=== PATIENT | female | born 1990 | race Caucasian/White ===

== ENCOUNTER 2018-12-15 00:45 | Inpatient (IN) | payer OTHER ==
[2018-12-15] MEDS ORDERED: DEXTROSE 5%-LACTATED RINGERS 1,000 ML IV SCH (01:10)
[2018-12-15 01:57] LABS: BASO % 0.6 % (0-2.0); EOS % 0.9 % (0-4.5); HEMOGLOBIN 12.7 GM/dL (10.7-15.3); LYMPH % 14.9 % (8-40); MCH 30.7 pg (25.7-33.7); MCHC 33.4 g/dl (32.0-36.0); MEAN PLT VOLUME 8.7 fl (7.5-11.1); MONO % 8.3 % (3.8-10.2); NEUT % 75.3 % (42.8-82.8); PLATELET COUNT 216 K/MM3 (134-434); RBC 4.13 M/mm3 (3.60-5.2); RDW 14.5 % (11.6-15.6); WHITE BLOOD COUNT 9.3 K/mm3 (4.0-10.0)
[2018-12-15 02:12] LABS: INR 0.92 (0.83-1.09); PROTHROMBIN TIME (PATIENT) 10.8 SEC (9.7-13.0)
[2018-12-15 02:14] LABS: ACTIVATED PTT 29.2 SECONDS (25.2-36.5)
[2018-12-15 02:18] LABS: BLOOD UREA NITROGEN 7.5 mg/dL (7-18); CREATININE 0.7 mg/dL (0.55-1.3)
[2018-12-15] MEDS ORDERED: PROMETHAZINE HCL 25 MG/1 ML VIAL ONE (02:35)
[2018-12-15] MEDS ORDERED: BUTORPHANOL TARTRATE 1 MG/ML VIAL ONE ×2 (02:42)
[2018-12-15] MEDS ORDERED: BUTORPHANOL TARTRATE 1 MG/ML VIAL IVPB ONE (02:55)
--- NOTE | 2018-12-15 03:01 | HP ---
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 No: Ascites, Cancer, Constipation, Crohn's Disease, Diverticulitis, Diverticulosis, Esophageal Varices, GERD, GI Bleed, Hemorrhoids, Hiatal Hernia, Inflamatory Bowel Disease, Irritable Bowel Disease, Pancreatitis, Peptic Ulcer Disease, Ulcerative Colitis , Other Hepatobiliary: No: Cirrhosis, Cholelithiasis, Cholecystitis, Choledocholithiasis , Hepatitis A, Hepatitis B, Hepatitis C, Other Renal/: No: Renal Failure, Renal Inusuff, BPH, Cancer, Hematuria, Hemodialysis , Neurogenic Bladder, Renal Calculi, UTI, Other ...: 2 ...Para: 1 ...Term: 1 ...LMP: 02/22/18 ... Weeks Gestation by Dates: 41.0 ...EDC by Dates: 12/09/18 ...EDC by Sono: 12/09/18 Heme/Onc: Yes: Sickle Cell Trait (patient reports FOB) Infectious Disease: Yes: Other (rubella non-immune) Psych: No: Addictions, Anxiety, Bipolar, Depression, Panic, Psychosis, Schizophrenia, Other Musculoskeletal: No: Bursitis, Chronic low back pain, Hemiparesis, Hemiplegia, Osteoarthritis, Paraplegia, Other Rheumatology: No: Fibromyalgia, Gout, Lupus, Rheumatoid Arthritis, Sarcoidosis, Vasculitis, Other ENT: No: Allergic Rhinitis, Sinusitis, Other Endocrine: No: Leonard's Disease, Jacques's Disease, Diabetes Insipidus, Diabetes Mellitus, Hyperparathyroidism, Hyperthyroidism, Hypothyroidism, Osteopenia, SIADH, Other Dermatology: No: Basal Cell, Cellulitis, Eczema, Melanoma, Psoriasis, Squamous Cell, Other - Past Surgical History Past Surgical History: Yes: None Hx Myomectomy: No Hx Transabdominal Cerclage: No - Smoking History Smoking history: Never smoked Have you smoked in the past 12 months: No - Alcohol/Substance Use Hx Alcohol Use: No History of Substance Use: reports: None - Social History History of Recent Travel: Yes (zika test performed) Home Medications - Allergies Allergies/Adverse Reactions: Allergies Allergy/AdvReac Type Severity Reaction Status Date / Time No Known Allergies Allergy Verified 12/15/18 01:40 - Home Medications Home Medications: Ambulatory Orders Vitamins (Sjr) - 1 tab PO DAILY 12/15/18 Family Disease History - Family Disease History Family History: Unable to Obtain Review of Systems - Review of Systems Constitutional: reports: No Symptoms Eyes: reports: No Symptoms HENT: reports: No Symptoms Neck: reports: No Symptoms Cardiovascular: reports: No Symptoms Respiratory: reports: No Symptoms Gastrointestinal: reports: No Symptoms Genitourinary: reports: No Symptoms Breasts: reports: No Symptoms Reported Musculoskeletal: reports: No Symptoms Integumentary: reports: No Symptoms Neurological: reports: No Symptoms Hematology/Lymphatic: reports: No Symptoms Psychiatric: reports: No Symptoms Physical Exam - Maternity Vital Signs: Vital Signs Temperature 98.6 F 12/15/18 01:25 Pulse Rate 87 12/15/18 01:25 Respiratory Rate 20 12/15/18 01:25 Blood Pressure 137/89 12/15/18 01:25 O2 Sat by Pulse Oximetry (%) Constitutional: Yes: Well Nourished, No Distress Eyes: Yes: WNL HENT: Yes: Atraumatic, Normocephalic Neck: Yes: Supple Cardiovascular: Yes: Regular Rate and Rhythm Breast(s): Yes: Other (deferred) - Abdominal Exam/OB Number of Fetuses: Single Presentation: Vertex Contractions: Yes Regularity: Regular Intensity: Mod/Strong Monitor Mode: External Category: I Accelerations: Uniform Decelerations: None - Vaginal Exam/OB Vaginal Bleediing: No Speculum Exam: No Dilatation (cm): 6 Effacement (%): 90 Amniotic Membrane Status: Intact Station: -2 - Physical Exam Musculoskeletal: Yes: WNL Extremities: Yes: WNL Edema: Yes Edema: LLE: Trace, RLE: Trace Integumentary: Yes: WNL Deep Tendon Reflex Grade: Normal +2 ...Motor Strength: WNL Psychiatric: Yes: Alert, Oriented - Labs Lab Results: CBC, BMP 12/15/18 01:40 12/15/18 01:40 Imaging - Results Ultrasound: Report Reviewed (11/09/18), Other (patient reports sono performed yesterday and EFW of 8lbs as per her. Official sono is not available) Assessment/Plan 28 y/o @ 40.6 wks by LMP confirmed by 1st and 2nd trimester sonos, [place], GBS negative, SC trait and declined genetic consult, rubella non-immune. Patient presents in active labor, requesting IV pain control. FHT is reassuring and latest sono showed AC >95%, GDS is negative. Possible significance of large AC, including SC discussed with patient and all questions answered. Patient desires BTL and consent previously obtained. -Admission and informed consent obtained -Expectant management -IV pain control -Continuous monitoring -Re-evaluate accordingly
[2018-12-15 03:19] VITALS: BMI 38.6
[2018-12-15] MEDS ORDERED: PROMETHAZINE HCL 25 MG/1 ML VIAL IVPB ONE (03:30)
[2018-12-15 03:36] LABS: COCAINE, UR NEGATIVE ng/ml (CUTOFF=300); METHADONE, UR NEGATIVE ng/ml (CUTOFF=300); OPIATES, URI NEGATIVE ng/ml (CUTOFF=300); PHENCYCLIDINE,URINE NEGATIVE ng/ml (CUTOFF=25); URINE AMPHETAMINES NEGATIVE ng/ml (CUTOFF=500); URINE BARBITURATES NEGATIVE ng/ml (CUTOFF=200); URINE BENZODIAZEPINES NEGATIVE ng/ml (CUTOFF=200)
[2018-12-15] MEDS ORDERED: OXYTOCIN 20 UNITS in 0.9% NS 20 UNIT/1,000 ML INFUS.BAG IV ONE (05:10)
[2018-12-15] MEDS ORDERED: LIDOCAINE HCL 1% PRESERVATIVE FREE - 30ML VIAL ONE (05:10)
[2018-12-15] MEDS: OXYTOCIN 20 UNITS in 0.9% NS 20 UNIT/1,000 ML INFUS.BAG IV SCH (05:40)
--- NOTE | 2018-12-15 06:05 | PN ---
Ante-Partal Exam - Subjective Subjective: Patient evaluated for progression of labor Vital Signs: Vital Signs Temperature 98.1 F 12/15/18 03:00 Pulse Rate 89 12/15/18 04:00 Respiratory Rate 20 12/15/18 04:00 Blood Pressure 132/65 12/15/18 04:00 O2 Sat by Pulse Oximetry (%) Bleeding: Yes (bloody show) Bleeding Description: Mild Headache: No Visual changes: No Right upper quadrant pain: No - Contractions Contractions: Yes Regularity: Regular Intensity: Strong Monitor Mode: External - Exam during Labor Heart Rate: 155 (cat I) Variability: Moderate Category: I Monitor Accelerations: Present Monitor Decelerations: None Exam: Vaginal Dilatation (cm): 9.5 Effacement (%): 199 Amniotic Membrane Status: Ruptured (scant clear) Presentation: Vertex (asynclitic) Station: -1 - Assessment/Plan Assessment/Plan: @ 40.6wks, active labor, FHT is reassuring, S/P IV pain control and AROM. -Initiate maternal expulsive efforts -Anticipate
[2018-12-15] MEDS ORDERED: WITCH HAZEL 50% (TUCKS) 40 PAD/JAR PAD TP PRN (06:19)
[2018-12-15] MEDS ORDERED: BISACODYL 10 MG SUPP.RECT RC PRN (06:19)
[2018-12-15] MEDS ORDERED: BENZOCAINE 28 GM HEMORRHOIDAL OINTMENT TP PRN (06:19)
[2018-12-15] MEDS ORDERED: BENZOCAINE 20% 57 GM BOTTLE TP PRN (06:19)
[2018-12-15] MEDS ORDERED: MISOPROSTOL 100 MCG TABLET PV ONE (06:38)
--- NOTE | 2018-12-15 06:38 | PN ---
Delivery - Delivery Vaginal Delivery: No Problems Type of Anesthesia: Local Episiotomy/Laceration: Vaginal Extension/lac (small right sulcus laceration), 2nd degree EBL (cc): 400 Delivery, Single - Stages of Labor Date 1st Stage Initiatied: 12/14/18 Time 1st Stage Initiated: 23:00 Date 2nd Stage Initiated: 12/15/18 Placenta: Yes: Spontaneous - Condition of Gender: Female Position: OA (rstituted to KELLEY) - Feeding Plan Initial Plan: Exclusive throughout hospitalization Remarks - Remarks Remarks: 's head delivered with maternal expulsive efforts. No nuchal cord was present and shoulders followed without difficulty. Umbilical cord clamped and cut after delay. Samples for gases and blood obtained. Placenta delivered spontaneously and intact. Exam revealed mild atony and 2 degree perineal laceration with a small right vaginal sulcus tear. Rectal examination revealed intact mucosa. The laceration was correctly reapproximated anatomically with 2.0 and 3.0 polysorb sutures in standard fashion. Excellent reapproximation and hemostasis noted. No tissue tension noted at the conclusion of the repaired. 1000mcg misoprostol was administered prophylactically NV and exam revealed intact rectal mucosa. Fundus is firm and no active bleeding noted. Instrument/ sponge count is correct x 2 and confirmed by the nurse.
[2018-12-15] MEDS ORDERED: oxyCODONE HCL 5 MG TABLET PO PRN (06:39)
[2018-12-15] MEDS ORDERED: oxyCODONE HCL 5 MG TABLET ONE (07:05)
[2018-12-15] MEDS: IBUPROFEN 600 MG TABLET (FP) PO PRN ×3 (08:43→23:40)
[2018-12-15] MEDS: ACETAMINOPHEN 325 MG TABLET (FP) PO PRN ×2 (13:43→23:40)
[2018-12-16 07:04] LABS: BASO % 0.5 % (0-2.0); EOS % 2.3 % (0-4.5); HEMATOCRIT 34.3 % (32.4-45.2); HEMOGLOBIN 11.7 GM/dL (10.7-15.3); LYMPH % 23.5 % (8-40); MCH 31.3 pg (25.7-33.7); MEAN PLT VOLUME 8.7 fl (7.5-11.1); NEUT % 66.7 % (42.8-82.8); PLATELET COUNT 219 K/MM3 (134-434); RBC 3.73 M/mm3 (3.60-5.2); RDW 14.5 % (11.6-15.6); WHITE BLOOD COUNT 7.6 K/mm3 (4.0-10.0)
--- NOTE | 2018-12-16 08:07 | PN ---
Progress Note (short form) - Note Progress Note: ppd 1 ,doing well, ambylating, voids ok no excess vaginal bleeding CBC, BMP 12/16/18 06:30 12/15/18 01:40 Last Vital Signs Temp Pulse Resp BP Pulse Ox 98.1 F 85 20 124/76 99 12/16/18 06:00 12/16/18 06:00 12/16/18 06:00 12/16/18 06:00 12/15/18 07:40 uterus firm, non tender lochia mild no calf tenderness plan ambulate, for D/C home in am
[2018-12-16] MEDS: IBUPROFEN 600 MG TABLET (FP) PO PRN ×2 (12:20→20:47)
[2018-12-16] MEDS: ACETAMINOPHEN 325 MG TABLET (FP) PO PRN ×2 (12:21→20:48)
[2018-12-16] MEDS: OXYTOCIN 20 UNITS in 0.9% NS 20 UNIT/1,000 ML INFUS.BAG IV SCH (15:30)
[2018-12-16] MEDS ORDERED: SENNOSIDES/DOCUSATE COMBO (SENNA PLUS) TABLET (UD) PO PRN (22:00)
[2018-12-17 09:40] VITALS: BP 132/77; PULSE 92; TEMP 98.2
--- NOTE | 2018-12-17 12:12 | DS ---
Physical Examination Vital Signs: Vital Signs Temperature 98.2 F 12/17/18 09:39 Pulse Rate 92 H 12/17/18 09:39 Respiratory Rate 20 12/17/18 09:39 Blood Pressure 132/77 12/17/18 09:39 O2 Sat by Pulse Oximetry (%) 99 12/15/18 07:40 Constitutional: Yes: Well Nourished, No Distress, Calm Eyes: Yes: WNL, Conjunctiva Clear, EOM Intact HENT: Yes: WNL, Atraumatic, Normocephalic Neck: Yes: WNL, Supple, Trachea Midline Cardiovascular: Yes: WNL, Regular Rate and Rhythm Respiratory: Yes: WNL, Regular, CTA Bilaterally Gastrointestinal: Yes: WNL, Normal Bowel Sounds Musculoskeletal: Yes: WNL Extremities: Yes: WNL Edema: No Integumentary: Yes: WNL Neurological: Yes: WNL, Alert, Oriented ...Motor Strength: WNL Psychiatric: Yes: WNL Labs: CBC, BMP 12/16/18 06:30 12/15/18 01:40 Discharge Summary Reason For Visit: LABOR ADMIT Procedures: Principal: Hospital Course: Patent presented in labor She had an uncomplicated She met all milestones She was discharged home PPD#2 Condition: Stable - Instructions Diet, Activity, Other Instructions: Regular DIet Follow up in 4-6 weeks for your visit Referrals: Neftaly Garay MD [Family Provider] - Disposition: HOME - Home Medications Comprehensive Discharge Medication List: Ambulatory Orders Vitamins (Sjr) - 1 tab PO DAILY 12/15/18 Ibuprofen [Motrin -] 600 mg PO QID PRN #28 tablet 12/16/18
== END 2018-12-17 12:40 | disposition home or self-care (01) | DRG 560 ==
LOC: JDEL 00:45 → JLDR 01:10 → J3W 08:00
PROVIDERS: ADMIT Student in an Organized Health Care Education/Training Program; ATTEND Student in an Organized Health Care Education/Training Program
PROC: 10E0XZZ Delivery of Products of Conception, External Approach (ICD-10-PCS; principal; 2018-12-15)
PROC: 0W8NXZZ Division of Female Perineum, External Approach (ICD-10-PCS; 2018-12-15)
PROC: 0KQM0ZZ Repair Perineum Muscle, Open Approach (ICD-10-PCS; 2018-12-15)
DX: O70.1 Second degree perineal laceration during delivery (principal); Z3A.40 40 weeks gestation of pregnancy; Z37.0 Single live birth
CPT/HCPCS: 36415; 36600; 59025; 59409; 80048; 80307; 82803; 85025; 85610; 85730; 86593; 86850; 86900; 86901

== ENCOUNTER 2019-02-03 05:07 | Day surgery (SDC) | payer OTHER ==
[2019-02-01 10:45] VITALS: BMI 33.4
[2019-02-03] MEDS ORDERED: BUPIVACAINE HCL/PF 0.5% (5 MG/ML) 30 ML VIAL IJ ONE ×3 (11:53→13:25)
--- NOTE | 2019-02-03 12:32 | HP ---
History & Physical Update - Physical Physical: No Change - Assessment Assessment: No Change - Plan Plan: No Change
[2019-02-03] MEDS ORDERED: MIDAZOLAM HCL 2 MG/2 ML SINGLE DOSE VIAL ONE (12:38)
[2019-02-03] MEDS ORDERED: PROPOFOL 20 ML ONE (12:38)
[2019-02-03] MEDS ORDERED: ROCURONIUM BROMIDE 50 MG/5 ML SYRINGE ONE (12:39)
[2019-02-03] MEDS ORDERED: SUCCINYLCHOLINE CHLORIDE 200 MG/10 ML SYRINGE ONE (12:39)
--- NOTE | 2019-02-03 12:52 | HP ---
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: Alzheimer's, CVA, Dementia, Migraine, Multiple Sclerosis, Peripheral Neuropathy, Parkinson's, Seizure, Syncope, TIA, Vertigo, Other Cardiovascular: No: AFIB, Aneurysm, Aortic Insufficiency, Aortic Stenosis, CAD, CHF, Deep Vein Thrombosis, HTN, Hyperlipdemia, [place], Mitral Insufficiency, Mitral Stenosis, Murmur, Pulmonary Hypertension, Other Pulmonary: No: Asthma, Bronchitis, Cancer, COPD, O2 Dependent, Pneumonia, Previously Intubated, Pulmonary Embolus, Pulmonary Fibrosis, Sleep Apnea, Other Gastrointestinal: Yes: Gastritis (h/o po prlosec prn) Hepatobiliary: No: Cirrhosis, Cholelithiasis, Cholecystitis, Choledocholithiasis , Hepatitis A, Hepatitis B, Hepatitis C, Other Renal/: No: Renal Failure, Renal Inusuff, BPH, Cancer, Hematuria, Hemodialysis , Neurogenic Bladder, Renal Calculi, UTI, Other Reproductive: No: Ectopic , Endometriosis, Fibroids, PID, Polycystic Ovary Syndrome, Postmenopausal, Other ...LMP Comment: 2018 ...: No Heme/Onc: Yes: Sickle Cell Trait (patient reports FOB). No: Anemia, B12 Deficiency, Bleeding Disorder, Cancer, Current Chemotherapy, Current Radiation Therapy, Hemochromatosis, Hypercoaguable State, Myeloproliferative Synd, Sickle Cell Disease, Thrombocytopenia, Other Infectious Disease: Yes: Other (rubella non-immune). No: AIDS, C-Diff, Herpes Zoster, HIV, MRSA, STD's, Tuberculosis, VREF Psych: No: Addictions, Anxiety, Bipolar, Depression, Panic, Psychosis, Schizophrenia, Other Musculoskeletal: No: Bursitis, Chronic low back pain, Hemiparesis, Hemiplegia, Osteoarthritis, Paraplegia, Other Rheumatology: No: Fibromyalgia, Gout, Lupus, Rheumatoid Arthritis, Sarcoidosis, Vasculitis, Other ENT: No: Allergic Rhinitis, Sinusitis, Other Endocrine: No: Leonard's Disease, [place]'s Disease, Diabetes Insipidus, Diabetes Mellitus, Hyperparathyroidism, Hyperthyroidism, Hypothyroidism, Osteopenia, SIADH, Other Dermatology: No: Basal Cell, Cellulitis, Eczema, Melanoma, Psoriasis, Squamous Cell, Other - Past Surgical History Past Surgical History: Yes: None. No: AAA Repair, AICD, Amputation, Appendectomy, Arthrosocopy, AV Fistula/Graft, Bariatric Surgery, Breast Biopsy, Bypass, CABG, Carotid Endarterectomy, Cataract Removal, Cholecystectomy, Colectomy, Colonoscopy, Colostomy, Craniotomy, , Cystectomy, Hernia Repair, Hysterectomy, Ileal Conduit, Ileosotomy, Joint Replacement, Kidney Transplant, Laminectomy, Liver Transplant, Mastectomy, Nephrectomy, Oopherectomy , Orchiectomy, Permanent Pacemaker, Prostatectomy, Splenectomy, Stent, Thoracotomy, TURP, Tonsillectomy, Tubal Ligation, Upper Endoscopy, Valve Replacement, Vasectomy, Vein Stripping/Ligation - Smoking History Smoking history: Never smoked Have you smoked in the past 12 months: No - Alcohol/Substance Use Hx Alcohol Use: No History of Substance Use: reports: None - Social History History of Recent Travel: Yes (zika test performed) Home Medications - Allergies Allergies/Adverse Reactions: Allergies Allergy/AdvReac Type Severity Reaction Status Date / Time No Known Allergies Allergy Verified 02/03/19 12:05 - Home Medications Home Medications: Ambulatory Orders Vitamins (Sjr) - 1 tab PO HS 12/15/18 Ibuprofen [Motrin -] 600 mg PO PRN PRN 02/01/19 Review of Systems Unable to obtain ROS, reason: unremarkable - Review of Systems Constitutional: reports: No Symptoms Eyes: reports: No Symptoms HENT: reports: No Symptoms Neck: reports: No Symptoms Cardiovascular: reports: No Symptoms Respiratory: reports: No Symptoms Gastrointestinal: reports: No Symptoms Genitourinary: reports: No Symptoms Breasts: reports: No Symptoms Reported Musculoskeletal: reports: No Symptoms Integumentary: reports: No Symptoms Neurological: reports: No Symptoms Endocrine: reports: No Symptoms Hematology/Lymphatic: reports: No Symptoms Psychiatric: reports: No Symptoms Physical Examination Vital Signs: Vital Signs Temperature 98.3 F 02/03/19 12:05 Pulse Rate 75 02/03/19 12:05 Respiratory Rate 20 02/03/19 12:05 Blood Pressure 122/75 02/03/19 12:05 O2 Sat by Pulse Oximetry (%) 100 02/03/19 11:58 Constitutional: Yes: Calm Eyes: Yes: WNL HENT: Yes: Atraumatic Neck: Yes: Supple Cardiovascular: Yes: Regular Rate and Rhythm Gastrointestinal: Yes: Soft ...Rectal Exam: Yes: Deferred Renal/: Yes: Other (deferred) Musculoskeletal: Yes: WNL Extremities: Yes: WNL Edema: No Integumentary: Yes: WNL Wound/Incision: Yes: Well Approximated Neurological: Yes: Alert, Oriented ...Motor Strength: WNL Psychiatric: Yes: Alert, Oriented Labs: reviewed Assessment/Plan 28 y/o multiparous female desiring sterilization. Risks and complications of laparoscopic bilateral salpingectomy discussed at length and all questions answered. Informed consnet obtained -Proceed with scheduled surgery
[2019-02-03] MEDS ORDERED: PROMETHAZINE HCL 25 MG/1 ML VIAL IVPUSH PRN (12:53)
[2019-02-03] MEDS ORDERED: oxyCODONE HCL 5 MG TABLET PO PRN (12:53)
[2019-02-03] MEDS ORDERED: ONDANSETRON 4 MG/2 ML VIAL IVPUSH PRN (12:53)
[2019-02-03] MEDS ORDERED: LACTATED RINGERS SOLUTION 1,000 ML IV SCH (13:00)
[2019-02-03] MEDS ORDERED: NEOSTIGMINE METHYLSULFATE 0.5 MG/ML - 10 ML MDV ONE (13:53)
--- NOTE | 2019-02-03 14:29 | SURG ---
Surgery Special Delivery Messenger Note Special Delivery Messenger: Steve Hanley PA-C Date of Service: 02/03/19 Diagnosis: Voluntary sterilization Procedure: Laproscopic bilateral salpingectomy I was present for the entirety of the operative procedure. For further detail, please refer to operative report. Visit type - Case Type Case Type: Scheduled - Emergency Emergency Visit: No - New patient This patient is new to me today: Yes Date on this admission: 02/03/19 - Critical Care Critical Care patient: No
--- NOTE | 2019-02-03 14:53 | OP ---
Operative Note - Note: Operative Date: 02/03/19 (dic# [id number]) Pre-Operative Diagnosis: multiparity Operation: Laparoscopic bilateral salpingectomy Findings: see dictation Implants: none Post-Operative Diagnosis: Same as Pre-op Surgeon: Neftaly Garay Ripsawyer: Steve Hanley Anesthesia: General Specimens Removed: bilateral fallopian tubes Estimated Blood Loss (mls): 5 Drains, Volume Out (mls): 350 Fluid Volume Replaced (mls): 900 Operative Report Dictated: Yes
[2019-02-03 18:43] VITALS: TEMP 98
[2019-02-03 19:14] VITALS: BP 126/80; PULSE 100
--- NOTE | 2019-02-04 07:57 | OP ---
DATE OF OPERATION: 02/03/2019 PREOPERATIVE DIAGNOSIS: A 28-year-old female, desiring sterilization, counseled and consented for bilateral salpingectomy laparoscopically. POSTOPERATIVE DIAGNOSIS: A 28-year-old female, desiring sterilization, counseled and consented for bilateral salpingectomy laparoscopically. PROCEDURE: Laparoscopic bilateral salpingectomy. SURGEON: Nikolay Su MD CORRECTION OFFICER HEAD: , SAEID ANESTHESIA: General. INTRAVENOUS FLUIDS: Crystalloid 1900 mL. ESTIMATED BLOOD LOSS: Minimal 5 mL. COMPLICATIONS: None. FINDINGS: Normal anterior abdominal wall anatomy. A moderate amount of subcutaneous adipose tissue. Uncomplicated normal bimanual examination. Cervix consistent with multiparity. Intraabdominal findings were consistent with normal anatomy. No evidence of active bleeding or trauma at the point of entry or with the intraabdominal viscera. Uterus normal in appearance with small 2-cm x 1 subserosal fibroid, bilateral tubes and ovaries consistent with normal anatomy. Surgical stump was dry. DESCRIPTION OF PROCEDURE: The patient was taken to operating room where anesthesia was found to be adequate. She was then prepped and draped in a normal sterile fashion. A urinary Pollard catheter was placed atraumatically. Appropriate timeout took place. Attention was redirected to the vaginal area where anterior cervix was grasped with a single-toothed tenaculum and the HUMI manipulator was introduced to a depth of 8 cm without difficulty. Balloon tip inflated. All instruments were retrieved from the vagina. The HUMI manipulator handle was properly covered with a sterile glove. Attention was redirected to the abdomen where an infraumbilical incision was made with the scalpel following local anesthetic injection. The subcutaneous tissues were dissected off bluntly. The fascia was grasped with Chandana clamps and elevated. It was transected with Padilla scissors. Incidental entry to the peritoneal cavity occurred and peritoneal incision was extended bluntly and the incision was elevated from any underlying viscera. The Evens trocar was placed, and insufflating medium was activated. Proper placement was confirmed by the laparoscope. No active bleeding or evidence of trauma at the point of entry or at the level of the underlying viscera. Inspection of the abdominal cavity and pelvic cavity revealed previously mentioned findings. Left lower quadrant trocar was placed under constant visualization without difficulty followed by a left lower quadrant one. This was done without difficulty under constant visualization. Attention was redirected to the left fallopian tube which was identified by being followed to its fimbriated end, elevated with atraumatic grasper and the mesosalpinx immediately adjacent to the tube was transected with the LigaSure instrument as the specimen was elevated away from any surrounding viscera. The entire tube was severed, and the surgical bed was noted to be dry. Attention then was redirected to the contralateral fallopian tube, which underwent the exact same procedure as described without difficulty. Excellent hemostasis in the surgical bed was noted. The specimens were secured via an infraumbilical 10-mm endobag. The specimens were retrieved under constant visualization without difficulty. Secondary inspection of the intraabdominal cavity and surgical field revealed no abnormalities. The right lower quadrant trocar was removed under constant visualization followed by the left lower quadrant one. No active bleeding was noted. Insufflating medium was deactivated and all insufflating medium was evacuated from the intraabdominal cavity. The scope was retrieved, the infraumbilical trocar removed, and the fascia reapproximated by tying the initially placed fascial incision edges anchoring stitch of 3-0 Polysorb. Excellent structural reapproximation and hemostasis noted and confirmed by the palpation by the surgeon. The skin incisions were reapproximated with 4-0 Monocryl. Excellent hemostasis was noted. Attention then was redirected to the vaginal area where the HUMI manipulator and Pollard catheter were removed atraumatically. No active bleeding was noted. Patient tolerated the procedure well and is going to the recovery room in stable condition. Instrument count was reported as correct x2. NIKOLAY SU MD [id number]
--- NOTE | 2019-02-09 16:13 | PATH ---
Surgical Pathology Report Patient Name: ALONSO DUONG [facility]. Rec. #: [id number] /Age/Gender: 1990 (Age: 28) / F Account: [id number] Location: [facility] SURGICAL Taken: 02/03/2019 Received: 02/06/2019 Reported: 02/07/2019 Physicians: Neftaly Garay MD Specimen(s) Received FALLOPIAN TUBE RIGHT AND LEFT Clinical History Multiple parity, voluntary sterilization Final Diagnosis RIGHT AND LEFT FALLOPIAN TUBES, RESECTION: COMPLETE CROSS SECTION OF THE LUMEN IDENTIFIED IN TWO PORTIONS OF FALLOPIAN TUBE. Electronically Signed Ivone Quintanilla M.D. Gross Description Received fresh labelled "right and left fallopian tubes" are two portion of fallopian tube with attached fimbria measuring 3.5 cm in length and 0.5 cm in diameter, 4.2 cm and 0.5 cm in diameter, respectively. No focal lesions are identified. Sectioned and specialty sales representative sections submitted in 2 cassettes.1: One tube. 2: Other tube [email or web address]/02/06/2019 [email or web address]/02/06/2019
== END 2019-02-03 18:10 | disposition home or self-care (01) ==
LOC: JASU-SURG 05:07
PROVIDERS: ATTEND Student in an Organized Health Care Education/Training Program
PROC: 0UT74ZZ Resection of Bilateral Fallopian Tubes, Percutaneous Endoscopic Approach (ICD-10-PCS; principal; 2019-02-03 12:30)
DX: Z30.2 Encounter for sterilization (principal)
CPT/HCPCS: 84703; 94760